=== PATIENT | male | born 1945 | race Caucasian/White ===

== ENCOUNTER 2021-04-19 13:42 | Inpatient (IN) | payer MEDICARE, SELFPAY ==
[2021-04-19] VITALS (19 sets, daily range): BP systolic 122–152; BP diastolic 56–80; PULSE 49–98; RESP 10–19; TEMP 36.7–37; O2SAT 89–99
--- NOTE | ~2021-04-19 | XR_ITS ---
XR chest 1V portable DATE: 04/19/2021 14:21 INDICATION: Weakness TECHNIQUE: Portable upright AP chest on 04/19/2021 at 1418 hours COMPARISON: 12/28/2018 CT lung cancer screening FINDINGS: Possible approximately 1.8 cm mass, lateral right upper lung field overlying the anterior a spect of the right second rib. CT thorax examination is recommended. There is mild elevation of the right leaf of the diaphragm. No pulmonary infiltrate or consolidation, pleural effusion or pulmonary vascular congestion or pneumothorax is detected. Normal heart size. No hilar or mediastinal enlargement. Diffuse osteopenia. Degenerative spurring of the thoracic spine. IMPRESSION: Possible right upper lobe lung mass; CT thorax is recommended Reviewed, dictated and finalized at location A.
--- NOTE | ~2021-04-19 | MR_ITS ---
EXAMINATION: MR brain/brain stem wo/w con DATE: 04/22/2021 10:47 INDICATION: Brain metastases TECHNIQUE: Magnetic resonance imaging (MRI) of the brain and brainstem was performed without intraven ous contrast. Sequences included sagittal and axial T1-weighted SE, axial diffusion-weighted FS SE, a xial T2*-weighted GRE, axial T2-weighted FLAIR, and axial T2-weighted FSE. Postcontrast axial, sagitt al and coronal T1-weighted SE was obtained. Apparent diffusion coefficient (ADC) maps were created. COMPARISON: Head CT dated 04/20/2021 FINDINGS: There are couple enhancing brain lesions with prominent surrounding vasogenic edema in the right cere bral hemisphere. The larger in the frontal lobe identified on prior CT measures 3.6 x 3.3 x 2.9 cm. I t demonstrates a thin peripheral rim of enhancement along some enhancement along a few thin internal septations. The majority of the center of the mass is nonenhancing with heterogeneous T2 signal with restricted diffusion suggesting central necrosis. There is a gradient of increasing T2 signal depende ntly within the region of central necrosis likely representing dependently layering proteinaceous flu id or blood. Along the periphery of the lesion is some increased T1 signal as well as signal dropout on opposed phase images also consistent with hemorrhage with blood and old blood products. The smalle r lesion in the right parietal lobe near the vertex measures 10 mm in maximal diameter also with thin peripheral rim surrounding central high T2 signal. No other enhancing brain lesions identified. As p reviously noted there is significant mass effect resulting from the mass and associated vasogenic gilmar ma which results in effacement of the temporal horn and asymmetric decreased in size of the body and anterior horn of the right lateral ventricle. There is also subfalcine herniation with 5 mm right to left midline shift at the level of the ventricular septum. No other regions of restricted diffusion t o suggest acute infarction. There are no abnormal extra-axial fluid collections. Flow voids are seen in the cerebral arteries on the T2-weighted sequences consistent with their expected patency. Visuali zed orbits and soft tissues are unremarkable. Mild mucoperiosteal thickening in the bilateral ethmoid sinuses. IMPRESSION: 1. 3.6 cm peripherally enhancing likely centrally necrotic mass with small amount of associated hemor rhage in the right frontal lobe with smaller 1 cm lesion in the right parietal lobe most consistent w ith metastatic disease. 2. The mass along with large amount of surrounding vasogenic edema resulting in partial effacement of the right lateral ventricle and subfalcine herniation with 5 mm right to left midline shift. Reviewed, dictated and finalized at location A. IMPRESSION: 1. 3.6 cm peripherally enhancing likely centrally necrotic mass with small amou nt of associated hemorrhage in the right frontal lobe with smaller 1 cm lesion in the right parietal lobe most consistent with metastatic disease. 2. The mass along with large amount of surrounding vasogenic edema resulting in partial effacement of the right lateral ventricle and subfalcine herniation wi th 5 mm right to left midline shift.
--- NOTE | ~2021-04-19 | CT_ITS ---
EXAMINATION: CT brain wo con DATE: 04/20/2021 08:53 INDICATION: Stroke. TECHNIQUE: Computed tomography (CT) of the head was performed without intravenous contrast. Sagittal and coronal reconstructions were performed. The mA was adjusted according to patient size. Iterative reconstruction technique was employed. The dose-length product was 605.33 mGy-cm. COMPARISON: None FINDINGS: There is prominent vasogenic edema in the right frontal lobe and right basal ganglia surrounding a 3. 9 x 3.3 x 2.9 cm mass centered in the region of the subinsular white matter. There are couple small r egions within the mass of amorphous increased attenuation ascites portion which appears to represent posterior layering blood suggesting small amount of hemorrhage within a cavitary portion of the mass. The mass and surrounding edema exert local mass effect with effacement of the sulci in the anterior right cerebral hemisphere including the sylvian fissure. There is compression of the right lateral ve ntricle and 5 mm right to left midline shift. No acute infarction or abnormal extra axial fluid colle ction. The orbits, paranasal sinuses and mastoid air cells are normal. IMPRESSION: 1. 3.9 cm likely malignant right cerebral mass with prominent surrounding vasogenic edema involving p rimarily the right frontal lobe and basal ganglia which could represent either primary brain cancer o r metastatic disease given the presence of a previously noted right lung mass. 2. Compression of the right lateral ventricle, effacement of the overlying sulci and 5 mm right to le ft midline shift resulting from the mass and surrounding edema. 3. Suggestion of hemorrhagic transformation with small amount of posterior layering blood within a li justice centrally necrotic cavitary portion of the mass. Findings were discussed with Sho Lewis tavia nurse caring for the patient, at 9:50 AM. Reviewed, dictated and finalized at location A. IMPRESSION: 1. 3.9 cm likely malignant right cerebral mass with prominent surrounding vasog enic edema involving primarily the right frontal lobe and basal ganglia which c ould represent either primary brain cancer or metastatic disease given the pres ence of a previously noted right lung mass. 2. Compression of the right lateral ventricle, effacement of the overlying sulc i and 5 mm right to left midline shift resulting from the mass and surrounding edema. 3. Suggestion of hemorrhagic transformation with small amount of posterior laye ring blood within a likely centrally necrotic cavitary portion of the mass. Luis M de leon were discussed with Sho Lewis, the nurse caring for the patient, at 9:50 AM.
--- NOTE | ~2021-04-19 | CT_ITS ---
EXAMINATION: CT chest abdomen pelvis w con DATE: 04/20/2021 08:58 INDICATION: Right lung mass and right flank pain. TECHNIQUE: Computed tomography (CT) of the chest, abdomen, and pelvis was performed with 100 mL Omnip aque-350 intravenous contrast. Automated exposure control and iterative reconstruction technique were employed. The dose-length product was 1232.71 mGy-cm. COMPARISON: None FINDINGS: CHEST CT: 2.6 cm central low-attenuation likely cavitary mass in the right upper lobe. Mild emphysema. Patchy g roundglass opacities and centrilobular consolidation in the right lower lobe which is more concerning for pneumonia or aspiration. No pleural effusion or pneumothorax. Heart size is normal. Atherosclero tic coronary artery calcific location. No pericardial effusion. Thoracic aorta is normal in caliber w ith no dissection. Calcified mediastinal lymph nodes consistent with old granulomatous disease. Small amount of mucous seen within the trachea and right mainstem bronchus. No pathologically enlarged tho racic lymphadenopathy. There are bridging osteophytes at multiple levels in the spine, consistent wit h diffuse idiopathic skeletal hyperostosis (DISH). ABDOMEN/PELVIS CT: Small amount of perihepatic ascites with additional very small amount of ascites in the deep pelvis. Couple approximately 1.2 cm region likely focal hepatic steatosis at the ligamentum teres. Small sple harley calcification consistent with old granulomatous disease. Pancreas and left adrenal gland are norm al. 2.1 cm right adrenal mass. Small bilateral renal cysts measuring up to 1.4 cm and the left kidney . 4 nonobstructing stones in the lower pole of the right kidney measuring up to 7 mm in maximal diame ter. There appears to be a short small bowel intussusception in the left upper quadrant jejunum where there is a hypoenhancing intramural mass involving approximately one half of the circumference of th e small bowel extending approximately 2.5 cm in length and 1.4 cm in thickness. There is a cluster of 5 centrally low attenuation likely metastatic lymph nodes in the immediately adjacent small bowel me sentery, the cluster measuring 5.5 x 3.3 x 4.7 cm . No upstream dilation of the small bowel to sugges t extended obstruction and the intussusception may be transitory. Bladder is normal. Prostatomegaly. No pathologically enlarged pelvic lymphadenopathy. Chronic appearing L2 compression fracture with diaz roximately 40% central vertebral body height loss. There are a few small densely sclerotic bone islan ds in the proximal right femur, in the pelvis, T12 and L2 vertebral bodies. Cluster of calcifications with ring and arc-like configuration at the left humeral head most likely either additional bone isl ands or chondroid matrix in an enchondroma. No other suspicious lytic or blastic bone lesions. IMPRESSION: 1. Potentially transitory small bowel intussusception without obstruction dilation to suggest an exte nded obstruction. There does appear to be an associated lead mass with short segment of eccentric hyp oenhancing wall thickening suspicious for malignancy. 2. 2.6 cm right upper lobe mass and 2.1 cm adrenal mass suspicious for additional malignancy. 3. Cluster of enlarged centrally hypoenhancing mesenteric lymph nodes immediately adjacent to the sit e of intussusception suspicious for metastatic disease and suggesting that the small bowel lesion rep resents the primary malignancy. 4. Right lower lobe pneumonia and/or aspiration. 5. Nonobstructing right nephrolithiasis. 6. Prostatomegaly. Reviewed, dictated and finalized at location A. IMPRESSION: 1. Potentially transitory small bowel intussusception without obstruction dilat ion to suggest an extended obstruction. There does appear to be an associated l ea
--- NOTE | 2021-04-19 14:06 | ECG_ITS ---
Measurements Intervals [place] Rate: 57 P: 93 LA: 146 QRS: -15 QRSD: 96 T: -5 QT: 434 QTc: 423 Interpretive Statements SINUS BRADYCARDIA WITH SINUS ARRHYTHMIA INCOMPLETE RIGHT BUNDLE BRANCH BLOCK BORDERLINE ST-T WAVE ABNORMALITY- INFERIOR LEADS BASELINE ARTIFACT- I, II, III, AVR, AVL, AVF, V1-V6 BORDERLINE ECG Electronically Signed On 04-20-2021 8:01:10 CDT by Atif Dhillon D.O.
[2021-04-19 14:21] LABS: Basophils Absolute Auto 0.1 K/mm3 (0.0-0.1); Basophils Percent Auto 1.1 % (0.2-1.2); Eosinophils Absolute Auto 0.2 K/mm3 (0-0.3); Hematocrit 48.4 % (42.0-52.0); Hemoglobin 16.4 g/dL (14.0-18.0); Immature Granulocyte Absolute 0.04 K/mm3 (0.00-0.031); Immature Granulocyte Percent A 0.4 % (0-0.5); Lymphocytes Absolute Auto 1.56 K/mm3 (0.9-3.2); Lymphocytes Percent Auto 16.4 % (18.3-44.2); Mean Corpuscular HGB Conc 33.9 g/dl (32-36); Mean Corpuscular Hemoglobin 32.2 pg (26-34); Mean Corpuscular Volume 95.1 fl (80-100); Mean Platelet Volume 10.4 fl (7.4-10.4); Monocytes Absolute Auto 0.7 K/mm3 (0.1-0.6); Monocytes Percent Auto 7.7 % (2.6-8.5); Neutrophils Absolute Auto 6.9 K/mm3 (1.3-6.7); Neutrophils Percent Auto 72.4 % (45.5-73.1); Platelet Count Result 194 k/mm3 (150-375); Red Blood Count 5.09 M/mm3 (4.6-6.20); Red Cell Distribution Width 12.7 % (11.5-14.5); White Blood Count 9.5 K/mm3 (4.5-10.0)
[2021-04-19 14:22] LABS: Alanine Aminotransferase 21 U/L (4-50); Alkaline Phosphatase 143 U/L (38-126); Anion Gap 8 mmol/L (8-16); Aspartate Amino Transferase 38 U/L (17-59); Blood Urea Nitrogen 14 mg/dL (9-20); Calcium 8.8 mg/dL (8.4-10.2); Carbon Dioxide 25 mmol/L (22-30); Chloride 107 mmol/L (98-107); Estimated CRCL calculation 103 ml/min; Estimated Glomerular Filt Rate > 60; Glucose 98 mg/dL (65-110); Sodium 140 mmol/L (137-145)
[2021-04-19 15:57] LABS: Add Urine Microscopic? YES; Appearance Urine Clear (Clear); Bacteria Urine Trace /hpf; Bilirubin Urine Negative (Negative); Blood Urine Negative (Negative); Color Urine Yellow (Yellow); Glucose Urine UA Negative (Negative); Ketones Urine Trace mg/dL (Negative); Leukocyte Esterase Ur Negative LEU/UL (Negative); Mucus Urine Rare /lpf; Nitrate Urine Negative (Negative); Protein Urine Negative (Negative); RBC Urine 0-2 /hpf (0-2); Specific Grav Ur 1.019 (1.001-1.035); Squamous Epithelial Cell Urine Rare /hpf (Few); WBC Urine 0-3 /hpf
--- NOTE | 2021-04-19 15:58 | ED.WEAKNESS ---
HPI - Weakness General Chief complaint: Weakness Stated complaint: weakness Time Seen by Provider: 04/19/21 14:26 Source: patient and EMS Mode of arrival: EMS Limitations: no limitations History of Present Illness HPI Narrative: 75-year-old male Here because of general weakness Patient has a history of polio and postpolio syndrome, states that he was in an iron lung for a year as a child He was formally followed in a clinic at [place] by Dr. Mckee but his new doctor did not know anything about polio so he stopped going He has had progressive difficulty with self-care at home, where he lives with his They have installed some assist devices However for the last several days he effectively has been unable to get himself out of bed or a chair He reports that EMS could barely do it when they came to the house today, and certainly his is unable to assist him by herself It sounds like this is a culmination of a gradual process and that there is not an element of an acute illness here He denies a cough or shortness of breath or a fever, nausea or vomiting, his p.o. intake is been okay, he does not have any urinary symptoms and there is no focality to his weakness Related Data Home Medications Medication Instructions Recorded Confirmed aspirin 81 mg tablet,delayed 81 mg PO DAILY 09/17/19 04/06/21 release Allergies Allergy/AdvReac Type Severity Reaction Status Date / Time No Known Allergies Allergy Verified 04/19/21 14:10 Review of Systems Review of Systems: All systems reviewed & are unremarkable except as noted in HPI and below Constitutional: Constitutional: Reports no additional constitutional complaints, Denies chills, Reports fatigue, Denies fever(s), Denies headache(s) and Reports weakness Eyes: Eyes: Reports no additional eye complaints and Denies change in vision ENT: Denies headache(s) and Denies sore throat Cardiovascular: Cardiovascular: Denies chest pain and Denies dyspnea Respiratory: Respiratory: Denies cough and Denies dyspnea Gastrointestinal: Gastrointestinal: Denies abdominal pain, Denies diarrhea and Denies vomiting Genitourinary: Genitourinary: Denies dysuria and Denies urinary frequency Musculoskeletal: Musculoskeletal: Reports myalgias, Denies deformity, Reports arthralgias, Denies joint swelling and Denies numbness Integumentary/Breasts: Skin/Breast: Denies rash and Denies wounds Neurologic: Denies headache(s), Denies focal weakness, Denies numbness and Reports weakness Psychiatric: Psychiatric: Reports no additional psychiatric complaints Endocrine: Endocrine: Reports no additional endocrine complaints Hematologic/Lymphatic: Hematologic/Lymphatic: Reports no additional hematologic/lymphatic complaints Allergic/Immunologic: Allergic/Immunologic: Reports no additional allergic/immunologic complaints [facility] Past Medical History Medical History CAD (coronary artery disease) Hyperlipidemia Hypertension Polio Pulmonary emphysema Tobacco abuse Family History Family History Mother Cerebrovascular accident Polio Father Family history of thoracic aortic aneurysm Sibling Patient's sister is in good health Social History Social History Smoking packs per day: 0.5 Smoking cigarettes per day: 10.0 Smoking status: Current every day smoker Second hand tobacco smoke exposure: No Alcohol intake: current Alcohol use details: occasional Exam Const: General: cooperative, no acute distress and alert Orientation/consciousness: patient oriented x3 (alert) HENMT: Head: normal to inspection, normocephalic, atraumatic, no contusions, no hematomas and no lacerations Ears: external ears normal General nose exam: no epistaxis Eyes: Conjunctivae: conjunctivae normal EOM: EOMs intact bilaterally Neck:
--- NOTE | 2021-04-19 17:51 | ADMGEN ---
This patient, Lawrence Ricketts Jr., was admitted to Medical Room 345-01. Patient/family oriented to hospital policies and general routines including ID bracelet, bed and alarms, visiting hours, pain management, procedures, bathroom and other care routines, personal items, smoking policy, room service/diet, and visiting hours. Information on how to activate the Rapid Response Team has been discussed. Patient/Family are encouraged to report perceived risks to care and to ask questions if they do not understand what they are told or what they should do. Patient in bed resting comfortably in bed with no complaints at this time. Will continue to monitor patient.
[2021-04-19] MEDS: LACTATED RINGERS 1,000 ML 75 ML IV CONT (18:13)
--- NOTE | 2021-04-19 19:37 | PM.IMHP ---
H&P: HPI History of Present Illness Date/Time: 04/19/21 19:37 this is a 75-year-old male patient who has a past medical history of having polio at the age of 4. The patient stated that he had been placed on an iron lung for couple weeks but had been in the hospital for over year. The patient stated that he has had surgery to his left lower extremity due to the polio in the past. He has post-polio weakness and post-polio syndrome. However the patient is typically able to either walk with a cane or walker and now he has been in a motorized scooter. The patient has some handles placed throughout his home so he can stand up briefly and get himself into the wheelchair. He usually can take care of himself and then his can assist with his care. However over the last several days he has not been able to take care of himself and get out of bed or get in a chair. Today he stated that the firemen had to come and lift him up out of bed. The was not able to assist him. The patient used to see a polio specialist but he he has since retired. The patient does not see anybody at this time except a primary care doctor. The patient came in today because he had generalized weakness. The patient stated that he did have 1 COVID vaccine over a year ago. He denies any cough or fever chills. The patient stated he recently had a wellness checkup with his primary care doctor. He explained to the doctor that he has right flank pain and has had a history of multiple kidney stones in the past. The patient was started on tamsulosin and was found have hyperlipidemia and started on pravastatin. Otherwise the patient stated that he was fairly healthy. His chest x-ray today shows a possible right upper lobe lung mass. CT thorax is recommended. The patient had a CT scan on 09/17/2019 for cancer which was read as a lung rads category 1-and recommended a screening in 1 year of which it has been over a year now. Urine is negative for UTI today. The patient was given Mestinon in the emergency room x1. Patient stated that he is weak all over no focal weakness. The patient is being admitted to observation status on the date of service of 04/19/2021 Chief Complaint: Generalized weakness Review of Systems Review of Systems: All systems reviewed & are unremarkable except as noted in HPI and below Constitutional: Constitutional: Reports as per HPI and Reports no additional constitutional complaints Eyes: Eyes: Reports as per HPI and Reports no additional eye complaints ENT: Reports system reviewed and no additional complaints, except as documented and Reports Normal hearing present Cardiovascular: Cardiovascular: Reports no additional cardiovascular complaints Respiratory: Respiratory: Reports no additional respiratory complaints and Reports no additional respiratory complaints Gastrointestinal: Gastrointestinal: Reports as per HPI and Reports no additional gastrointestinal complaints Musculoskeletal: Musculoskeletal: Reports no additional musculoskeletal complaints Integumentary/Breasts: Skin/Breast: Reports system reviewed and no additional complaints, except as docu and Reports as per HPI Neurologic: Reports system reviewed and no additional complaints, except as documented, Reports as per HPI and Reports Normal hearing present Psychiatric: Psychiatric: Reports no additional psychiatric complaints and Reports as per HPI Endocrine: Endocrine: Reports no additional endocrine complaints Hematologic/Lymphatic: Hematologic/Lymphatic: Reports no additional hematologic/lymphatic complaints Allergic/Immunologic: Allergic/Immunologic: Reports no additional allergic/immunologic complaints [facility] Past Medical History Medical History (Updated 04/19/21 @ 20:08 by Elli Mcdaniel NP) Hyperlipidemia Hypertension Kidney stones Polio Pulmonary emphysema Tobacco abuse Surgical History Surgical History (Updated 04/19/21 @ 20:02 by Elli Mcdaniel NP) H/O cystosc
[2021-04-19 20:42] LABS: Creatine Kinase 110 U/L (55-170)
[2021-04-20 01:15] LABS: EDCOVIDSCREEN Negative (Negative)
[2021-04-20 01:20] LABS: Influenza Control Positive
[2021-04-20 04:41] VITALS: BP 152/69; PULSE 60; RESP 16; TEMP 36.6; O2SAT 96
[2021-04-20 05:30] LABS: Basophils Absolute Auto 0.1 K/mm3 (0.0-0.1); Eosinophils Absolute Auto 0.3 K/mm3 (0-0.3); Eosinophils Percent Auto 2.4 % (0-4.4); Hematocrit 46.6 % (42.0-52.0); Hemoglobin 15.5 g/dL (14.0-18.0); Immature Granulocyte Absolute 0.06 K/mm3 (0.00-0.031); Immature Granulocyte Percent A 0.6 % (0-0.5); Lymphocytes Absolute Auto 1.93 K/mm3 (0.9-3.2); Lymphocytes Percent Auto 18.7 % (18.3-44.2); Mean Corpuscular HGB Conc 33.3 g/dl (32-36); Mean Corpuscular Hemoglobin 31.8 pg (26-34); Mean Corpuscular Volume 95.7 fl (80-100); Mean Platelet Volume 10.1 fl (7.4-10.4); Monocytes Percent Auto 9.6 % (2.6-8.5); Neutrophils Percent Auto 67.7 % (45.5-73.1); Platelet Count Result 191 k/mm3 (150-375); Red Blood Count 4.87 M/mm3 (4.6-6.20); Red Cell Distribution Width 12.7 % (11.5-14.5); White Blood Count 10.3 K/mm3 (4.5-10.0)
[2021-04-20 05:39] LABS: Lactic Acid Reflex 0.8 mmol/L (0.7-2.1)
[2021-04-20 05:53] LABS: Alanine Aminotransferase 19 U/L (4-50); Albumin Level 3.7 g/dL (3.5-5.1); Alkaline Phosphatase 129 U/L (38-126); Anion Gap 4 mmol/L (8-16); Aspartate Amino Transferase 28 U/L (17-59); Bilirubin,Total 1.1 mg/dL (0.2-1.3); Blood Urea Nitrogen 14 mg/dL (9-20); Calcium 8.6 mg/dL (8.4-10.2); Carbon Dioxide 28 mmol/L (22-30); Chloride 106 mmol/L (98-107); Estimated CRCL calculation 103 ml/min; Estimated Glomerular Filt Rate > 60; Glucose 94 mg/dL (65-110); Magnesium 1.9 mg/dL (1.6-2.3); Sodium 138 mmol/L (137-145)
[2021-04-20] MEDS: LACTATED RINGERS 1,000 ML 75 ML IV CONT (07:01)
--- NOTE | 2021-04-20 07:07 | PM.IMPN ---
Progress Note: A&P Additional Plan START OF DOCTOR LILI?S PROGRESS NOTE Subjective: Aside from bilateral lower extremity weakness, the patient endorses no complaints at this time. He denies fever, rigors, nausea, vomiting, cough, wheeze, abdominal pain, chest pain, dyspnea, lightheadedness, dizziness, headache, diplopia, blurred vision, dysphagia, dysphagia, paresthesia/anesthesia of any part his body. Patient has a history of polio and appears to have chronic bilateral lower extremity weakness however he indicates that he is typically able to ambulate with a walker. I have explained to the patient his current medical condition plan of care and I have answered all his questions Objective: General: -Alert -No acute distress -No dyspnea -No tachypnea Heart: -Regular rate -Regular rhythm -No murmurs -No gallops -No rubs Lungs: -No wheeze -No rhonchi -left-sided rales present Abdomen: -Normal bowel sounds in all four quadrants -No rebound -No guarding -No tenderness Extremities: -2/4 pulse in all four extremities -No clubbing -No cyanosis -No edema Additional Details / Additional Findings / Exceptions / Miscellaneous: Cranial nerves 2-12 are intact. Eyes: Pupils equally round and reactive to light and accommodation. Extraocular muscles are intact The patient has 5/5 bilateral upper extremity strength. The patient has 4/5 bilateral plantar flexion strength. He has 1 to 2/5 bilateral dorsiflexion strength. Sensorium bilateral upper lower extremities are equal and intact Pertinent Laboratory Results / Pertinent Radiology Results / Pertinent Diagnostic Results / Pertinent Vital Signs: Blood pressure 152/69 Assessment / Plan: Generalized weakness. Uncertain etiology at this time. Pseudocholinesterase bodies currently pending. 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 I will follow up on neurology's findings recommendations. Check TSH, free T4, B12, folate level. CT of the head pending. IV lactated Ringer's at 75 mL/hour plus vitamin-D 1000 IU p.o. daily Pulmonary mass. CT chest pending History of polio History of nephrolithiasis Hyperlipidemia Hypertension COPD Smoker. Patient counseled regarding smoking cessation BPH. Flomax 0.4 mg p.o. daily DVT prophylaxis. Lovenox 40 mg subcutaneously daily Disposition: Anticipate discharge within 48 hours END OF DOCTOR LILI?S PROGRESS NOTE Subjective Date/time seen: 04/20/21 07:07 Objective Data Vital Signs Vital Signs: Vital Signs - 24 hr 04/19/21 13:47 04/19/21 13:48 04/19/21 14:00 Temperature Pulse Rate 61 57 L 60 Respiratory Rate 11 L 13 11 L Blood Pressure 138/64 Pulse Oximetry 97 95 89 L 04/19/21 14:07 04/19/21 14:08 04/19/21 14:15 Temperature 98.6 F Pulse Rate 98 59 L 59 L Respiratory Rate 17 13 Blood Pressure 138/64 Pulse Oximetry 99 97 04/19/21 14:16 04/19/21 14:30 04/19/21 14:31 Temperature Pulse Rate 58 L 51 L 63 Respiratory Rate 10 L 12 19 Blood Pressure 134/62 132/65 Pulse Oximetry 97 96 93 04/19/21 14:45 04/19/21 14:46 04/19/21 15:00 Temperature Pulse Rate 52 L 50 L 52 L Respiratory Rate 12 14 14 Blood Pressure 152/73 H Pulse Oximetry 95 95 98 04/19/21 15:01 04/19/21 15:15 04/19/21 15:16 Temperature Pulse Rate 63 53 L 56 L Respiratory Rate 17 13 14 Blood Pressure 138/80 144/56 H Pulse Oximetry 98 98 97 04/19/21 15:30 04/19/21 15:31 04/19/21 17:26 Temperature Pulse Rate 49 L 53 L 81 Respiratory Rate 15 14 16 Blood Pressure 140/62 132/74 Pulse Oximetry 97 96 99 04/19/21 22:00 04/20/21 04:41 Temperature 98.1 F 97.8 F Pulse Rate 61 60 Respiratory Rate 18 16 Blood Pressure 122/64 152/69 H Pulse Oximetry 96 96 Intake/Output Intake/Output: Intake & Output 04/17/21 04/18/21 04/19/21 04/20/21 23:59 23:59 23:59 23:59 Intake Total 1000 Output Total 525 B
[2021-04-20 07:57] LABS: Free T4 Free Thyroxine 1.53 ng/mL (0.78-2.19)
[2021-04-20] MEDS: CHOLECALCIFEROL 1,000 UNITS TABLET 1000 UNITS PO (09:45)
[2021-04-20] MEDS: ASPIRIN 81 MG ENTERIC TABLET PO (09:45)
[2021-04-20] MEDS: TAMSULOSIN HCL 0.4 MG CAPSULE PO (09:45)
[2021-04-20] MEDS: ENOXAPARIN 40 MG/0.4 ML SYRINGE SUB-Q (09:45)
--- NOTE | 2021-04-20 10:12 | PC.NURSE ---
I was notified about the results from the patient's CT scan at [address] Pelaoy. Spoke with Dr. Castillo about the results of the patient's CT scans at 1005.
[2021-04-20 10:13] LABS: Folic Acid 5.2 ng/mL (2.76->20)
--- NOTE | 2021-04-20 10:31 | WPDNEURCNPN ---
Assessment and Plan Additional Plan history of poliomyelitis with chronic fatigue syndrome and also post-polio syndrome admitted for complaints of increasing weakness, chest x-ray documented right upper lobe lung mass, head CT scan with 3.9cm possibly malignant right cerebral mass with surrounding vasogenic edema particularly involving the right frontal lobe and basal ganglia in addition to the compression of the right lateral ventricle and effacement of the overlying sulci and 5mm right to left midline shift along this hemorrhagic transformation with small amount of posterior layering blood within the centrally necrotic cavity portion of the mass. Most likely metastatic disease to the brain will need to be is started on Decadron, have an Oncology consultation, and for the planned according, I will explain to the patient Consult date: 04/20/21 Time Seen: 10:00 HPI: Lawrence Ricketts Jr. is a 75 year old male has been admitted to [facility] for the complaints of inability to walk and increasing weakness involving the lower extremities. Patient's past history is consistent with the history of poliomyelitis affecting the lower extremities more than the upper extremities and history of iron lung couple of weeks and also hospitalization for more than a year, history of surgery to left lower extremity and also history of post-polio syndrome. Typically he is able to walk with a cane or walker but now he has been in a motorized scooter he is able to briefly stand and put himself into the wheelchair and take care of himself and his assists him. On the day of admission the firemen had to come and lift him up out of bed his was unable to assist him he was becoming increasingly weak he did have COVID vaccine over a year ago was complaining of right flank pain with history of multiple kidney stones in the past this time with x-ray revealed right upper lung mass for which CT scan of the head has been recommend he had CT scan on September 17, [address] scan has been suggested he received M[place]on, history of current everyday smoker, smoking pack years 15, no alcohol, pertinent past history includes hyperlipidemia, hypertension, renal stones, pulmonary emphysema, removal of renal calculus, history of left foot surgery, Review of Systems Review of Systems: All systems reviewed & are unremarkable except as noted in HPI and below PMFSH Past Medical History Medical History Hyperlipidemia Hypertension Kidney stones Polio Pulmonary emphysema Tobacco abuse Surgical History Surgical History H/O cystoscopy History of extraction of renal calculus S/P foot surgery, left Family History Family History Mother Cerebrovascular accident Polio Father Family history of thoracic aortic aneurysm Sibling Patient's sister is in good health Social History Social History Social History: The patient lives with his who is the durable power city attorney for healthcare. The patient desires to be a full code. 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 The patient has 2 children a son and a daughter. The patient still continues to smoke about half a pack a cigarettes a day. He does not use any alcohol marijuana illicit drugs. Code status full code Smoking packs per day: 0.5 Smoking cigarettes per day: 10.0 Years smoked: 30 Smoking pack-years: 15.00 Smoking status: Current every day smoker Tobacco type: cigarettes Second hand tobacco smoke exposure: No Alcohol intake: never Alcohol use details: occasional Substance use: never Substance use type: does not use Spiritual care concerns: No Meds Home Medications and Allergies Home Medications Medication Instructions Recorded Confirmed Type aspir
--- NOTE | 2021-04-20 10:43 | PC.NURSE ---
Stat neuro consult call to Dr White. Ms in building and will come and see patient.
--- NOTE | 2021-04-20 12:36 | PDONCCN ---
HPI - Date of Consult Date/Time: 04/20/21 12:36 Requesting Physician: Enrique Mcgovern MD Primary Care Provider: Ronald Rahman, DO - Consult Narrative Reason for consult: Metastatic cancer Narrative: Lawrence Ricketts Jr. is a 75 year old male with history of smoking half pack per day for for more than 50 years duration otherwise in good health except history of hyperlipidemia and hypertension came into the hospital with generalized weakness and fall just about a week ago. Patient has baseline weakness in the left lower extremity status post polio at age of 58. He denies any weight loss. He denies any abdominal pain and chest pain. Denies any melena hematochezia. CT chest abdomen and pelvis was done on April 19 showed 2.6 cm right upper lobe lung mass along with 2.1 cm adrenal mass suspicious for malignancy. There was potentially transitory small-bowel intussusception without obstruction. There does appear to be associated least mass with short-segment of his centric hypoenhancing wall thickening suspicious for malignancy. There was no pathologically enlarged pelvic lymphadenopathy. Chronic L2 compression fracture. CT head was also performed that showed 3.9 cm right cerebral mass with surrounding vasogenic edema. Patient has been seen by the neurology service and Decadron was started. Patient denies any personal history of malignancy. Review of Systems - Review of Systems All systems reviewed & are unremarkable except as noted in HPI and bel - Neurologic Reports system reviewed and no additional complaints, except as documented, Reports hearing normal, Reports sensory deficit, Reports weakness, Denies headache(s), Denies focal weakness, Denies numbness PMFSH Medical History: Medical History (Last Reviewed 04/20/21 @ 10:38 by Leonid White MD) Hyperlipidemia Hypertension Kidney stones Polio Pulmonary emphysema Tobacco abuse Surgical History: Surgical History (Last Reviewed 04/20/21 @ 10:38 by Leonid White MD) H/O cystoscopy History of extraction of renal calculus S/P foot surgery, left Family History: Family History (Last Reviewed 04/20/21 @ 10:38 by Leonid White MD) Mother Cerebrovascular accident Polio Father Family history of thoracic aortic aneurysm Sibling Patient's sister is in good health - Social History Social History: Social History (Last Reviewed 04/20/21 @ 10:38 by Leonid White MD) Alcohol Use: Alcohol intake: never Alcohol use details: occasional Substance Use: Substance use: never Substance use type: does not use Others: Spiritual care concerns: No Smoking Status: Smoking status: Current every day smoker Tobacco type: cigarettes Second hand tobacco smoke exposure: No Smoking Pack-years: Smoking packs per day: 0.5 Smoking cigarettes per day: 10.0 Years smoked: 30 Smoking pack-years: 15.00 Meds Home Medications Medication Instructions Recorded Confirmed Type aspirin 81 mg tablet,delayed 81 mg PO DAILY 09/17/19 04/19/21 History release pravastatin 40 mg tablet 40 mg PO DAILY #90 tablet 03/27/20 04/19/21 Rx tamsulosin 0.4 mg capsule 0.4 mg PO DAILY #90 cap 03/27/20 04/19/21 Rx Allergies Allergy/AdvReac Type Severity Reaction Status Date / Time No Known Allergies Allergy Verified 04/19/21 14:10 Results - Labs CBC & Chem 7: 04/20/21 05:13 04/20/21 05:13 Labs: Short CBC 04/19/21 04/20/21 Range/Units 13:54 05:13 WBC 9.5 10.3 H (4.5-10.0) K/mm3 Hgb 16.4 15.5 (14.0-18.0) g/dL Hct 48.4 46.6 (42.0-52.0) % Plt Count 194 191 (150-375) k/mm3 [facility] 04/19/21 04/20/21 13:54 05:13 Sodium 140 138 Potassium 4.0 4.0 Chloride 107 106 Carbon Dioxide 25 28 BUN 14 14 Creatinine 0.50 L 0.50 L Glucose 98 94 Calcium 8.8 8.6 Cardiac Enzymes 04/19/21 Range/Units 20:09 Total Creatine Kinase 110 (55-170) U/L Liver Function
[2021-04-20 14:00] VITALS: BP 144/62; PULSE 56; RESP 16; TEMP 36.6; O2SAT 98
[2021-04-20] MEDS: DEXAMETHASONE SOD PHOS INJ 4 MG/ML VIAL IV PUSH ×2 (17:52→23:46)
[2021-04-20 22:00] VITALS: BP 155/69; PULSE 56; RESP 20; TEMP 36.4; O2SAT 98
[2021-04-21] MEDS: DEXAMETHASONE SOD PHOS INJ 4 MG/ML VIAL IV PUSH ×3 (05:26→18:34)
[2021-04-21] MEDS: LACTATED RINGERS 1,000 ML 75 ML IV CONT ×2 (05:29→18:34)
--- NOTE | 2021-04-21 08:44 | PDRADONCCN ---
Recommendations 1. Expedite pathologic diagnosis. 2. Brain MRI is recommended to assess for additional brain metastases. 3. I had a lengthy discussion with him regarding the noncontrast CT brain imaging findings and possible treatment options. The CT scan is consistent with at least 1 large brain metastasis from as yet an unknown primary malignancy, although likely lung versus GI. Optimal treatment for brain metastases depends on the size and number of lesions present. For patients with 1 large symptomatic metastasis, often surgical resection followed by stereotactic radiosurgery (SRS) or whole brain radiation therapy is recommended. In patients with a limited number of lesions (1-3) often stereotactic radiosurgery is used alone. In patients with multiple metastases, whole brain radiation therapy +/- SRS boost is generally recommended. An alternative management option would include hospice with best supportive care. I described the 2 basic radiation approaches, including conventional fractionated whole brain radiation given daily Tuesday through Tuesday over 2 weeks or stereotactic radiosurgery delivered in 1-5 fractions. Final treatment recommendations will be based on the MRI findings and pathology result. Given the size of the mass and extent of edema of CT, recommend starting brain radiation as soon as pathologic diagnosis of malignancy is confirmed and brain MRI is obtained. Impression Lawrence Ricketts Jr is a 75 year old male smoker with a RUL lung mass, adrenal mass, small bowel mass with adjacent adenopathy, and non-contrast CT imaging demonstrating a 3.9 cm right frontal and basal ganglia mass with prominent edema and local mass effect causing a 5 mm midline shift. PMF - Date/Time Seen 04/21/21 15:00 - Identifying Data Lawrence Ricketts Jr is a 75 year old male smoker with a RUL lung mass, adrenal mass, small bowel mass with adjacent adenopathy, and non-contrast CT imaging demonstrating a 3.9 cm right frontal and basal ganglia mass with prominent edema and local mass effect causing a 5 mm midline shift. He is seen today at the request of Dr Cagle for a radiation oncology opinion. - History of Present Illness Presentation He has chronic bilateral lower extremity weakness due to polio infection at age 4. At baseline, he is able to walk with a cane or walker and assist with his basic care. On 04/19/2021, he was admitted to the hospital for evaluation of increasing lower extremity weakness such that he is not no longer able to get out of bed or do self-care, and is requiring a motorized scooter to move around. He has also had recent onset of slurred speech and right frontal-temporal headaches. He reports recent weight loss on purpose. He denies loss of appetite, chest pain, new or worsening dyspnea, persistent cough, hemoptysis, abdominal or pelvic pain, change in bowel or bladder habits (although OT notes he has had a couple episodes of bowel incontinence during hospitalization), new bone pain, severe headaches, nausea, vomiting, visual disturbance, new focal motor weakness, sensory deficits, mental status changes, seizure activity. No history of prior malignancy. He is a current everyday smoker of 1/2 pack/day - none for the past week. 04/19/2021 CXR: Possible 1.8 cm mass in the lateral right upper lung field 04/20/2021 CT Chest w: 2.6 cm central low-attenuation cavitary mass in RUL lung. Mild emphysema. RLL pneumonia and/or aspiration. No thoracic adenopathy. No pleural effusion. No pericardial effusion. CT Abd/Pelvis w: Small amount of ascites. 2.1 cm RT adrenal mass. Short small bowel intussusception in left upper quadrant where there is a hypo-enhancing intramural mass involving 1/2 of the circumference of the small bowel extending approximately 2.5 cm in length and 1.4 cm in thickness. Cluster of 5 likely metastatic nodes in the immediately adjacent small bowel mesentery measuring 5.5 x 3.3 x 4.7 cm. No pelvic clarisa
[2021-04-21] MEDS: PANTOPRAZOLE 40 MG TABLET PO (08:53)
[2021-04-21] MEDS: CHOLECALCIFEROL 1,000 UNITS TABLET 1000 UNITS PO (08:53)
[2021-04-21] MEDS: TAMSULOSIN HCL 0.4 MG CAPSULE PO (08:53)
--- NOTE | 2021-04-21 12:38 | PM.CNGS ---
Assessment and Plan Assessment and plan (1) Intussusception of small bowel: Code(s): K56.1 - Intussusception Status: Acute Assessment and Plan: All imaging reviewed and discussed with the patient in detail. The CT scan chest/abd/pelvis suggests a possibly transitory small bowel intussusception without obstruction with an associated lead mass with short segment of hypoenhancing wall thickening. In addition, he was found to have a right upper lobe mass, adrenal mass, and cerebral mass suspicious for malignancy. There is also a cluster of enlarged mesenteric lymph nodes immediately adjacent to the site of intussusception suspicious for metastatic disease. The patient is asymptomatic without any abdominal pain or signs of obstruction. Surgical intervention would only delay initiating any potential chemotherapy treatment. We would recommend to proceed with diagnosis and treatment per Oncology's recommendations at this time. We could consider surgery if Oncology felt it was necessary for diagnostic purposes, or if he developed abdominal pain or signs of an obstruction. Otherwise, we will continue to monitor for now. Okay to start advancing his diet as tolerated. Thank you for allowing us to see the patient in consultation. (2) Lung mass: Code(s): R91.8 - Other nonspecific abnormal finding of lung field Status: Acute Assessment and Plan: Oncology following. (3) Adrenal mass: Code(s): E27.8 - Other specified disorders of adrenal gland Status: Acute Assessment and Plan: Plan for biopsy today in Radiology. (4) Cerebral mass: Code(s): G93.89 - Other specified disorders of brain Status: Acute Assessment and Plan: Head CT noted a likely malignant right cerebral mass with prominent surrounding vasogenic edema. Oncology and Neurology following. Patient was started on dexamethasone. (5) Generalized weakness: Code(s): R53.1 - Weakness Status: Acute (6) Post-polio syndrome: Code(s): G14 - Postpolio syndrome Status: Acute (7) Hypertension: Qualifiers: Hypertension type: essential hypertension Qualified Code(s): I10 - Essential (primary) hypertension Code(s): I10 - Essential (primary) hypertension Status: Chronic (8) Tobacco abuse: Code(s): Z72.0 - Tobacco use Status: Acute Additional Plan I have discussed the patient's case and plan of care with Dr. Carrillo. History of Present Illness Consult details Consult date: 10/12/21 Reason for consult: other (Small bowel intussusception with potential small bowel mass lead point) Requesting physician: Anna,Reji Lara DO Narrative: This is a 75-year-old male who presented to the ER with complaints of worsening generalized weakness and recent fall. He holds a history of hypertension, hyperlipidemia, and having a history of polio primarily affecting his lower extremities. He reports that his generalized weakness was fairly sudden. He reports that typically he walks with a walker independently and over a few days, he was unable to even get up on his own. He states that his believes that he has had worsening issues with memory loss and slurred speech, but he cannot comment on that. Evaluation in the ED showed him to have a 3.9 cm likely malignant right cerebral mass with prominent surrounding vasogenic edema involving primarily the right frontal lobe and basal ganglia, compression of the right lateral ventricle, effacement of the overlying sulci and 5 mm right to left midline shift resulting from the mass and surrounding edema, and suggestion of hemorrhagic transformation with small amount of posterior layering blood within a likely centrally necrotic cavitary portion of the mass on the head CT. CT scan of the chest/abdomen/pelvis showed a possible transitory small bowel intussusception without obstruction, an associated lead mass with short segment of eccentric hypoenhancin
[2021-04-21 12:49] LABS: INR 1.1; Partial Thromboplastin Time 31.3 SECONDS (22.3-36.8); Prothrombin Time 14.1 Seconds (11.1-14.7)
--- NOTE | 2021-04-21 12:58 | PM.IMPN ---
Progress Note: A&P Additional Plan Metastatic brain mets- neurology, oncology radiation oncology all on board Generalized weakness. Uncertain etiology at this time. Hem/oncology on the case Pulmonary mass. CT chest, abdomen and pelvis reviewed History of polio History of nephrolithiasis Hyperlipidemia Hypertension COPD Smoker. Patient counseled regarding smoking cessation BPH. Flomax 0.4 mg p.o. daily DVT prophylaxis. Lovenox 40 mg subcutaneously daily Subjective Date/time seen: 04/21/21 12:58 Interval history: 75-year-old male patient who has a past medical history of having polio at the age of 4. The patient stated that he had been placed on an iron lung for couple weeks but had been in the hospital for over year. Admitted with weakness, needing a alli lift to move presently. And is pleasantly confused in the room Review of Systems Review of Systems: All systems reviewed & are unremarkable except as noted in HPI and below Exam Const: General: other (Chronically ill, generalised weakness ) Orientation/consciousness: oriented to person HENMT: Head: normal to inspection Resp: Effort & Inspection: no respiratory distress Auscultation: no rhonchi and no wheezes Cardio: Rate: regular rate Rhythm: regular rhythm GI: Inspection: normal to inspection GI Palp: No abdominal tenderness, No Guarding due to palpation present (GI) and No Hepatomegaly present Auscultation: normal bowel sounds Neuro: General: oriented to person Objective Data Vital Signs Vital Signs: Vital Signs - 24 hr 04/20/21 14:00 04/20/21 22:00 Temperature 36.6 C 36.4 C Pulse Rate 56 L 56 L Respiratory Rate 16 20 Blood Pressure 144/62 H 155/69 H Pulse Oximetry 98 98 Intake/Output Intake/Output: Intake & Output 04/18/21 04/19/21 04/20/21 04/21/21 23:59 23:59 23:59 23:59 Intake Total 2360 Output Total 675 Balance 1685 Meds/Results Medications: Active Medications Generic Name Dose Route Start Last Admin Trade Name Freq PRN Reason Stop Dose Admin Acetaminophen 650 mg 04/19/21 15:56 Acetaminophen 325 Mg Tablet PO Q4H PRN Mild Pain (1-3) or Fever Dexamethasone Sodium Phosphate 4 mg 04/20/21 18:00 04/21/21 05:26 Dexamethasone Sod Phos Inj 4 Mg/Ml Vial IV PUSH 4 mg Q6HR ESTUARDO Administration Lactated Ringer's 1,000 mls @ 75 mls/hr 04/19/21 16:00 04/21/21 09:06 Lr - Lactated Ringers Iv IV CONT Not Given .[id number] ESTUARDO Ondansetron HCl 4 mg 04/19/21 15:56 Ondansetron Inj 4 Mg/2 Ml Vial IV PUSH Q4H PRN Nausea Pantoprazole Sodium 40 mg 04/21/21 09:00 04/21/21 08:53 Pantoprazole 40 Mg Tablet PO 40 mg QAM ESTUARDO Administration Tamsulosin HCl 0.4 mg 04/20/21 09:00 04/21/21 08:53 Tamsulosin Hcl 0.4 Mg Capsule PO 0.4 mg DAILY ESTUARDO Administration Vitamin D 1,000 units 04/20/21 09:00 04/21/21 08:53 Cholecalciferol 1,000 Units Tablet PO 1,000 units DAILY ESTUARDO Administration Radiology Results: ITS Impressions Chest X-Ray 04/19/21 14:27 IMPRESSION: Possible right upper lobe lung mass; CT thorax is recommended Head CT 04/20/21 09:13 IMPRESSION: 1. 3.9 cm likely malignant right cerebral mass with prominent surrounding vasogenic edema involving primarily the right frontal lobe and basal ganglia which could represent either primary brain cancer or metastatic disease given the presence of a previously noted right lung mass. 2. Compression of the right lateral ventricle, effacement of the overlying sulci and 5 mm right to left midline shift resulting from the mass and surrounding edema. 3. Suggestion of hemorrhagic transformation with small amount of posterior layering blood within a likely centrally necrotic cavitary portion of the mass. Findings were discussed with Sho Lewis, the nurse caring for the patient, at 9:50 AM. Chest/Abdomen/Pelvis CT 04/20/21 09:23 IMPRESSION: 1. Potentially transitory small bowel
[2021-04-21 14:00] VITALS: BP 150/74; PULSE 74; RESP 16; TEMP 36.7; O2SAT 99
[2021-04-21 20:00] VITALS: PULSE 74; RESP 16; O2SAT 99
[2021-04-21 22:00] VITALS: BP 127/61; PULSE 65; RESP 20; TEMP 36.7; O2SAT 99
[2021-04-22] MEDS: DEXAMETHASONE SOD PHOS INJ 4 MG/ML VIAL IV PUSH ×5 (00:40→23:06)
--- NOTE | 2021-04-22 05:53 | WPDCDIQUERY2 ---
CDI Query Clarification Request -04/[address] impression: likely malignant right cerebral mass with prominent surrounding vasogenic edema. Compression of the right lateral ventricle, effacement of the overlying sulci and 5mm right to left midline shift resulting from the mass and surrounding edema. -Metastatic brain mets documented -Decadron 4mg IV q6hrs ordered Please clarify/document the diagnosis that Decadron was ordered to treat.
[2021-04-22 06:00] VITALS: BP 132/65; PULSE 54; RESP 21; TEMP 36.1; O2SAT 100
[2021-04-22] MEDS: LACTATED RINGERS 1,000 ML 75 ML IV CONT (08:30)
[2021-04-22] MEDS: TAMSULOSIN HCL 0.4 MG CAPSULE PO (08:31)
[2021-04-22] MEDS: PANTOPRAZOLE 40 MG TABLET PO (08:31)
[2021-04-22] MEDS: CHOLECALCIFEROL 1,000 UNITS TABLET 1000 UNITS PO (08:31)
--- NOTE | 2021-04-22 12:37 | PM.IMPN ---
Progress Note: A&P Assessment and Plan (1) Cerebral mass: Code(s): G93.89 - Other specified disorders of brain Status: Acute Assessment and Plan: SEE BELOW (2) Adrenal mass: Code(s): E27.8 - Other specified disorders of adrenal gland Status: Acute (3) Intussusception of small bowel: Code(s): K56.1 - Intussusception Status: Acute (4) Kidney stones: Code(s): N20.0 - Calculus of kidney Status: Chronic (5) Lung mass: Code(s): R91.8 - Other nonspecific abnormal finding of lung field Status: Acute (6) Hypertension: Qualifiers: Hypertension type: essential hypertension Qualified Code(s): I10 - Essential (primary) hypertension Code(s): I10 - Essential (primary) hypertension Status: Chronic (7) Generalized weakness: Code(s): R53.1 - Weakness Status: Acute Additional Plan Metastatic brain mets- Neurology, oncology radiation oncology all on board Generalized weakness. likely secondary to brain mets, very weak unable to raise his legs much. Hem/oncology on the case Pulmonary mass. CT chest, abdomen and pelvis reviewed, pt going for CT biopsy today History of polio History of nephrolithiasis Hyperlipidemia Hypertension COPD Smoker. Patient counseled regarding smoking cessation BPH. Flomax 0.4 mg p.o. daily DVT prophylaxis. Lovenox 40 mg subcutaneously daily Subjective Date/time seen: 04/22/21 12:37 Interval history: 75-year-old male patient who has a past medical history of having polio at the age of 4. Admitted with weakness, needing a Adriana lift to move presently. And is pleasantly confused in the room some hallucinations about his . Pt is due to have a CT biopsy of his lung today. Review of Systems Review of Systems: All systems reviewed & are unremarkable except as noted in HPI and below Exam Const: General: other (Chronically ill, generalised weakness ) Orientation/consciousness: lethargic and Other orientation findings (very weak, hallucinating pleasantly confused ) HENMT: Head: normal to inspection Resp: Effort & Inspection: no respiratory distress Auscultation: no rhonchi and no wheezes Cardio: Rate: regular rate Rhythm: regular rhythm GI: Inspection: normal to inspection Auscultation: normal bowel sounds Objective Data Vital Signs Vital Signs: Vital Signs - 24 hr 04/21/21 14:00 04/21/21 20:00 04/21/21 22:00 Temperature 36.7 C 36.7 C Pulse Rate 74 74 65 Respiratory Rate 16 16 20 Blood Pressure 150/74 H 127/61 Pulse Oximetry 99 99 99 04/22/21 06:00 Temperature 36.1 C L Pulse Rate 54 L Respiratory Rate 21 H Blood Pressure 132/65 Pulse Oximetry 100 Intake/Output Intake/Output: Intake & Output 04/19/21 04/20/21 04/21/21 04/22/21 23:59 23:59 23:59 23:59 Intake Total 2360 1000 1000 Output Total 675 350 Balance 6810 898 5932 Meds/Results Medications: Active Medications Generic Name Dose Route Start Last Admin Trade Name Freq PRN Reason Stop Dose Admin Acetaminophen 650 mg 04/19/21 15:56 Acetaminophen 325 Mg Tablet PO Q4H PRN Mild Pain (1-3) or Fever Dexamethasone Sodium Phosphate 4 mg 04/20/21 18:00 04/22/21 06:08 Dexamethasone Sod Phos Inj 4 Mg/Ml Vial IV PUSH 4 mg Q6HR ESTUARDO Administration Lactated Ringer's 1,000 mls @ 75 mls/hr 04/19/21 16:00 04/22/21 08:30 Lr - Lactated Ringers Iv IV CONT 75 mls/hr .[id number] ESTUARDO Administration Ondansetron HCl 4 mg 04/19/21 15:56 Ondansetron Inj 4 Mg/2 Ml Vial IV PUSH Q4H PRN Nausea Pantoprazole Sodium 40 mg 04/21/21 09:00 04/22/21 08:31 Pantoprazole 40 Mg Tablet PO 40 mg QAM ESTUARDO Administration Tamsulosin HCl 0.4 mg 04/20/21 09:00 04/22/21 08:31 Tamsulosin Hcl 0.4 Mg Capsule PO 0.4 mg DAILY ESTUARDO Administration Vitamin D 1,000 units 04/20/21 09:00 04/22/21 08:31 Cholecalciferol 1,000 Units Tablet PO 1,000 un
[2021-04-22 14:00] VITALS: BP 121/69; PULSE 57; RESP 16; TEMP 36.3; O2SAT 100
--- NOTE | 2021-04-22 14:23 | PCOTNOTE ---
Attempted to see patient this afternoon for OT tx. Patient declined any/all therapeutic activity stating that he was too tired and comfortable at the moment. Attempted to encourage the patient by educating on the benefits of therapy/activity, but he continued to decline.
[2021-04-22 22:00] VITALS: BP 131/62; PULSE 60; RESP 20; TEMP 36.2; O2SAT 98
[2021-04-23] MEDS: LACTATED RINGERS 1,000 ML 75 ML IV CONT ×2 (01:40→14:06)
[2021-04-23] MEDS: DEXAMETHASONE SOD PHOS INJ 4 MG/ML VIAL IV PUSH ×3 (05:08→17:53)
[2021-04-23 06:00] VITALS: BP 135/65; PULSE 50; RESP 18; TEMP 36.6; O2SAT 97
[2021-04-23] MEDS: PANTOPRAZOLE 40 MG TABLET PO (09:00)
[2021-04-23] MEDS: CHOLECALCIFEROL 1,000 UNITS TABLET 1000 UNITS PO (09:00)
[2021-04-23] MEDS: TAMSULOSIN HCL 0.4 MG CAPSULE PO (09:01)
[2021-04-23 15:18] VITALS: BP 130/73; PULSE 64; RESP 18; TEMP 36.9; O2SAT 99
--- NOTE | 2021-04-23 16:01 | PM.IMPN ---
Subjective Date/time seen: 04/23/21 16:01 Interval history: he denies any pain, headaches, shortness of breath. He has been having increased weakness of his upper extremity Review of Systems Review of Systems: he denies headache, shortness of breath, or vision changes. He denies actual confusion and was alert oriented to person month year and name of the current president. He did know he was at the hospital but could not state which hospital. He did identify that we were near [facility] Objective Data Vital Signs Vital Signs: Vital Signs - 24 hr 04/22/21 22:00 04/23/21 06:00 04/23/21 15:18 Temperature 97.1 F L 97.9 F 98.4 F Pulse Rate 60 50 L 64 Respiratory Rate 20 18 18 Blood Pressure 131/62 135/65 130/73 Pulse Oximetry 98 97 99 Intake/Output Intake/Output: Intake & Output 04/20/21 04/21/21 04/22/21 04/23/21 23:59 23:59 23:59 23:59 Intake Total 2360 1000 2000 1000 Output Total 675 350 350 350 Balance 2658 251 4248 650 Meds/Results Medications: Active Medications Generic Name Dose Route Start Last Admin Trade Name Freq PRN Reason Stop Dose Admin Acetaminophen 650 mg 04/19/21 15:56 Acetaminophen 325 Mg Tablet PO Q4H PRN Mild Pain (1-3) or Fever Dexamethasone Sodium Phosphate 4 mg 04/20/21 18:00 04/23/21 14:02 Dexamethasone Sod Phos Inj 4 Mg/Ml Vial IV PUSH 4 mg Q6HR ESTUARDO Administration Lactated Ringer's 1,000 mls @ 75 mls/hr 04/19/21 16:00 04/23/21 14:06 Lr - Lactated Ringers Iv IV CONT 75 mls/hr .[id number] ESTUARDO Administration Ondansetron HCl 4 mg 04/19/21 15:56 Ondansetron Inj 4 Mg/2 Ml Vial IV PUSH Q4H PRN Nausea Pantoprazole Sodium 40 mg 04/21/21 09:00 04/23/21 09:00 Pantoprazole 40 Mg Tablet PO 40 mg QAM ESTUARDO Administration Tamsulosin HCl 0.4 mg 04/20/21 09:00 04/23/21 09:01 Tamsulosin Hcl 0.4 Mg Capsule PO 0.4 mg DAILY ESTUARDO Administration Vitamin D 1,000 units 04/20/21 09:00 04/23/21 09:00 Cholecalciferol 1,000 Units Tablet PO 1,000 units DAILY ESTUARDO Administration Radiology Results: ITS Impressions Chest X-Ray 04/19/21 14:27 IMPRESSION: Possible right upper lobe lung mass; CT thorax is recommended Head CT 04/20/21 09:13 IMPRESSION: 1. 3.9 cm likely malignant right cerebral mass with prominent surrounding vasogenic edema involving primarily the right frontal lobe and basal ganglia which could represent either primary brain cancer or metastatic disease given the presence of a previously noted right lung mass. 2. Compression of the right lateral ventricle, effacement of the overlying sulci and 5 mm right to left midline shift resulting from the mass and surrounding edema. 3. Suggestion of hemorrhagic transformation with small amount of posterior layering blood within a likely centrally necrotic cavitary portion of the mass. Findings were discussed with Sho Lewis, the nurse caring for the patient, at 9:50 AM. Chest/Abdomen/Pelvis CT 04/20/21 09:23 IMPRESSION: 1. Potentially transitory small bowel intussusception without obstruction dilation to suggest an extended obstruction. There does appear to be an associated lead mass with short segment of eccentric hypoenhancing wall thickening suspicious for malignancy. 2. 2.6 cm right upper lobe mass and 2.1 cm adrenal mass suspicious for additional malignancy. 3. Cluster of enlarged centrally hypoenhancing mesenteric lymph nodes immediately adjacent to the site of intussusception suspicious for metastatic disease and suggesting that the small bowel lesion represents the primary malignancy. 4. Right lower lobe pneumonia and/or aspiration. 5. Nonobstructing right nephrolithiasis. 6. Prostatomegaly. Brain MRI 04/22/21 10:49 IMPRESSION: 1. 3.6 cm peripherally enhancing likely centrally necrotic mass with small amount of associated hemorrhage in the right frontal lobe with smaller 1 cm lesion in the right parietal lobe most consistent with meta
--- NOTE | 2021-04-23 16:27 | PCSTNOTE ---
Please refer to the Bedside Swallow Evaluation in the EMR. Please note, silent aspiration cannot be ruled out at bedside.
--- NOTE | 2021-04-23 17:33 | PM.TDS ---
Transfer Discharge Sum: Prov Provider Date of admission: 04/21/21 10:55 Primary care physician: Ronald Rahman DO Admitting clinician: Enrique Mcgovern MD Consults: 04/19/21 Care Coordination Consult Routine Comment: Reason for Consult:: Home Health Consult to Physician Routine Comment: Consulting Provider: Leonid White call center analyst/MD group to consult: neurology Reason for consultation: generalized weakness Has provider been notified: Yes 04/20/21 Consult to Physician Routine Comment: Consulting Provider: Augusto Cagle call center analyst/MD group to consult: Haematology/Oncology: Metastatic CA Reason for consultation: Haematology/Oncology: Metastatic CA Has provider been notified: Yes Consult to Physician Routine Comment: Consulting Provider: Leonid White call center analyst/MD group to consult: Stat: Neurology Consultation: Intracranial mass spoke to Dr White Reason for consultation: Stat: Neurology Consultation: Intracranial mass Has provider been notified: Yes Consult to Physician Routine Comment: Consulting Provider: Aleksander Carrillo call center analyst/MD group to consult: Surgery Consult: Bowel Obstruction Dr Carrillo notified Reason for consultation: Surgery Consult: Bowel Obstruction Has provider been notified: Yes Consult to Physician Routine Comment: spoke with Dr Rosas's office at 13:45 /[employer] Consulting Provider: Elli Rosas call center analyst/MD group to consult: Dr Elli Rosas (radiation oncology) Reason for consultation: Brain mets Has provider been notified: Yes DS: Admitting Diagnosis Discharge Date brain mass lung mass mesenteric lymphadenopathy adrenal mass tobacco abuse disorder BPH hypertension COPD Admitting Diagnosis post-polio syndrome generalized weakness DS: Discharge Diagnosis Discharge Diagnosis (1) Cerebral mass: Code(s): G93.89 - Other specified disorders of brain Status: Acute Assessment and Plan: with uncertain primary. The patient was anticipated undergo biopsy of adrenal mass but biopsy was pending Acetylcholine receptor antibody testing. The patient was evaluated by Dr. Cagle. He had an MRI of the brain which demonstrated 3.6 cm peripherally enhancing likely central necrotic mass with small amount of associated hemorrhage in the right frontal lobe with smaller 1 cm lesion in the right parietal lobe most consistent with metastatic disease. The mass along with a large amount of surrounding vasogenic edema resulting in partial effacement of the right ventricle and subfalcine herniation with 5 mm the right to left midline shift. Dr. Cagle felt the patient would be best served by transferr to higher level of care where he could receive inpatient radiation therapy/ chemotherapy and neuro surgical evaluation. I contacted the [facility] transfer line and arrange transfer to [facility]. The patient was accepted by Dr. Farias (2) Lung mass: Code(s): R91.8 - Other nonspecific abnormal finding of lung field Status: Acute Assessment and Plan: the patient underwent COVID antigen testing 04/20/2021 and found to be negative influenza was also negative given the patient's tobacco use history I suspect patient likely has underlying lung cancer. (3) Adrenal mass: Code(s): E27.8 - Other specified disorders of adrenal gland Status: Acute Assessment and Plan: acetylcholine receptor antibody pending (4) Mesenteric lymphadenopathy: Code(s): R59.0 - Localized enlarged lymph nodes Status: Acute Assessment and Plan: Could be associated with primary GI tumor versus metastatic disease. Patient is being transferred to [facility] for further evaluation. The patient is not having abdominal pain and has not had any nausea or vomiting. Will place patient on a heart healthy diet. (5) Kidney stones: Code(s): N20.0 - C
--- NOTE | 2021-04-24 07:19 | WPDCDIQUERY2 ---
CDI Query Clarification Request -04/[address] impression: likely malignant right cerebral mass with prominent surrounding vasogenic edema. Compression of the right lateral ventricle, effacement of the overlying sulci and 5mm right to left midline shift resulting from the mass and surrounding edema. -04/22 MRI impression: 2)The mass along with large amount of surrounding vasogenic edema resulting in partial effacement of the right lateral ventricle and subfalcine herniation with 5 mm right to left midline shift. -Metastatic brain mets documented -Decadron 4mg IV q6hrs ordered -CT and MRI findings documented in progress notes Please clarify/document the diagnosis that Decadron was ordered to treat.
[2021-04-26 23:46] LABS: Acetylchol Receptor Binding Ab <0.30 nmol/L
[2021-04-27 09:11] LABS: Epinephrine, Plasma 38
[2021-04-27 17:47] LABS: Calculated Total (E+NE) 46 mcg/g cr (9-74); Creatinine, Urine 35 mg/dL (20-320); Dopamine, Urine 209 mcg/g cr (40-390); Norepinephrine, Urine 46 mcg/g cr (7-65)
== END 2021-04-23 19:43 | disposition short-term general hospital (02) | DRG 54 ==
LOC: ANHED 16:08 → ANH3MED 16:52
PROVIDERS: Internal Medicine; Internal Medicine Hematology & Oncology; Nurse Practitioner; Admitting Provider Internal Medicine; Emergency Provider Emergency Medicine; PCP Internal Medicine; Visit Provider Family Medicine
DX: C79.31 Secondary malignant neoplasm of brain (principal); G93.6 Cerebral edema; K56.1 Intussusception; C17.9 Malignant neoplasm of small intestine, unspecified; C77.2 Secondary and unspecified malignant neoplasm of intra-abdominal lymph nodes; C78.01 Secondary malignant neoplasm of right lung; C79.71 Secondary malignant neoplasm of right adrenal gland; Z20.822 Contact with and (suspected) exposure to COVID-19; G14 Postpolio syndrome; J44.9 Chronic obstructive pulmonary disease, unspecified; N40.0 Benign prostatic hyperplasia without lower urinary tract symptoms; N20.0 Calculus of kidney; I10 Essential (primary) hypertension; I25.10 Atherosclerotic heart disease of native coronary artery without angina pectoris; E78.5 Hyperlipidemia, unspecified; F17.210 Nicotine dependence, cigarettes, uncomplicated; Z79.82 Long term (current) use of aspirin; Z99.3 Dependence on wheelchair
CPT/HCPCS: 36415; 70450; 70553; 71045; 71260; 74177; 80053; 81001; 82384; 82542; 82550; 82570; 82607; 82728; 82746; 83605; 83735; 84100; 84238; 84439; 84443; 85025; 85610; 85730; 87426; 87804; 92610; 93005; 96361; 96372; 96374; 96376; 97110; 97163; 97167; 97530; 97535; 99285; A9270; A9577; C9803; G0378; J1100; J1650; J7120; Q9967